=== PATIENT | female | born 1960 | race Caucasian/White ===

== ENCOUNTER 2016-09-08 16:49 | Observation (INO) ==
--- NOTE | 2016-09-08 17:10 | Emergency Department Note ---
Disposition Clinical Impression: Acute exacerbation of chronic obstructive airways disease Disposition: Admitted As Inpatient Condition: Fair Referrals: Anderson Fowler MD [Primary Care Provider] - Forms: ED Satisfaction Letter Time of Disposition: 19:22 (zenon choiv) SOB HPI - General Chief Complaint: ED Shortness of Breath/Dyspnea Stated Complaint: "can't breath", pain to right rib area Time Seen by Provider: 09/08/16 17:00 Source: patient Mode of arrival: ambulatory Limitations: no limitations Nursing Notes Reviewed: Yes Vital Signs Reviewed: Yes - History of Present Illness Sudden onset of right lower rib pain worse with respiration worse with movement has COPD states that she has had a few chills unable to catch her breath states pain is sharp stabbing type pain denies abdominal pain. Denies any loss of bowel or bladder control denies any diarrhea melena meet hematochezia hematemesis patient states the descending pain no tenderness and unable to catch her breath states that she is to give any breath she denies any additional complaints Pt Subjective Complaint: shortness of breath, cough, pain with inspiration Onset (ago): hour(s) (1) Context: recent illness Severity: severe Consistency/Duration: constant Improves with: nothing Worsens with: movement Known history of: COPD, asthma Associated symptoms: Reports: chest pain, pain with inspiration, cough, wheezing , sputum production. Denies: fever, orthopnea, polyuria, polydipsia, parasthesias, palpitations, hemoptysis, diaphoresis, nausea/vomiting, syncope, rash, sense of impending doom Treatment prior to arrival: none Cough present: Yes Cough Description: Involuntary, Non-Productive, Weak Sputum production: Yes Sputum Amount: Small Sputum Color: Yellow - Related Data Home Medications Medication Instructions Recorded Confirmed FLUoxetine HCl [Prozac] 20 mg PO DAILY 07/20/16 09/08/16 Albuterol Sulfate [Proair Hfa] 1 puff IH DAILY 09/08/16 09/08/16 Benzonatate [Tessalon] 200 mg PO Q8H PRN 09/08/16 09/08/16 LORazepam [Ativan] 1 mg PO TID PRN 09/08/16 09/08/16 Levofloxacin [Levaquin] 500 mg PO DAILY 09/08/16 09/08/16 Montelukast [Singulair] 10 mg PO DAILY 09/08/16 09/08/16 Ropinirole [Requip] 3 mg PO HS 09/08/16 09/08/16 Previous Rx's Medication Instructions Recorded Acyclovir [Zovirax] 400 mg PO TID #30 tablet 09/02/16 Promethazine/Phenyleph/Codeine 5 ml PO HS PRN #60 ml 09/02/16 [Promethazine Vc-Codeine Syrup] Allergies Allergy/AdvReac Type Severity Reaction Status Date / Time hydroxyzine [From Vistaril] Allergy Hives Verified 09/08/16 16:50 nalbuphine [From Nubain] Allergy Hives Verified 09/08/16 16:50 morphine AdvReac Rash Verified 09/08/16 16:50 All systems ED: reviewed and negative except as stated. Constitutional: Denies: fever, chills, weakness Eyes: Denies: vision change ENT ED: Reports: congestion. Denies: ear pain, throat pain, dental pain Cardiovascular: Reports: chest pain. Denies: palpitations, dyspnea on exertion Respiratory: Reports: cough, dyspnea, wheezes, sputum production Gastrointestinal: Denies: abdominal pain, nausea, vomiting Genitourinary: Denies: urgency, dysuria, frequency Musculoskeletal: Denies: back pain, neck pain, joint swelling Integumentary: Denies: abrasion, lesions Neurological: Denies: headache, weakness Psychiatric: Denies: anxiety Endocrine: Denies: fatigue Hematological/Lymphatic: Denies: easy bleeding Allergic/Immunologic: Denies: facial swelling Past Medical History - Past Medical History Attestation: Yes The following information was validated with the patient. 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 - Social History Smoking Status: Current every day smoker Smokeless Tobacco Status: No Alcohol use: Reports: none Drug use: Reports: none Physical Exam - General Limitations: no limitations General appearance: alert, in no apparent distress, anxious - Head Head exam: atraumatic, normocephalic, normal inspection - Eye Eye exam: Present: normal appearance, PERRL, EOMI - ENT ENT exam: normal exam, normal oropharynx, mucous membranes moist, TM's normal bilaterally, normal external ear exam - Neck Neck exam: Present: normal inspection, full ROM, trachea midline - Chest Chest inspection: Present: normal inspection, symmetric chest wall rise, tenderness - Respiratory Respiratory exam: Present: wheezes, prolonged expiratory phase - Cardiovascular Cardiovascular exam: Present: regular rate, normal rhythm, normal heart sounds - Abdominal Exam Abdominal exam: Present: soft, Non-Tender, normal bowel sounds. Absent: mass, pulsatile mass - Extremities Exam Extremities exam: Present: normal inspection, full ROM, normal capillary refill. Absent: tenderness, joint swelling - Expanded Lower Extremity Exam Gait: observed and normal - Back Exam Back exam: Present: normal inspection, full ROM. Absent: muscle spasm - Neurological Exam Neurological exam: Present: alert, oriented X3, CN II-XII intact - Psychiatric Psychiatric exam: Present: normal affect, normal mood, anxious - Skin Skin exam: Present: warm, dry, intact, normal color Course Course Narrative: Patient seen and examined the study was done patient was then admitted for observation overnight for exacerbation of her COPD causing lung pain Vital Signs Temperature 98.8 F 09/08/16 16:53 Pulse Rate 83 09/08/16 16:53 Respiratory Rate 24 09/08/16 16:53 Blood Pressure 157/95 09/08/16 16:53 O2 Sat by Pulse Oximetry 100 09/08/16 16:53 Temperature 98.8 F 09/08/16 16:56 Pulse Rate 77 09/08/16 18:50 Respiratory Rate 24 09/08/16 18:50 Blood Pressure 143/81 09/08/16 18:50 O2 Sat by Pulse Oximetry 99 09/08/16 18:50 Oxygen Delivery Oxygen Delivery Room Air Shortness of Breath/Dyspnea - Differential Diagnosis Likely: acute exacerbation of chronic obstructive airways disease - Medical Records Medical records reviewed: Yes I reviewed the patient's medical records. - Lab Data Lab results reviewed: Yes I reviewed the patient's lab results. Result diagrams: 09/08/16 17:12 09/08/16 17:12 Lab Results 09/08/16 09/08/16 09/08/16 Range/Units 17:12 17:12 17:12 WBC 9.0 (4.3-11.1) K/mcL RBC 4.75 (3.82-4.97) M/mcL Hgb 14.9 (11.5-15.4) g/dL Hct 43.8 (35.3-44.9) % MCV 92.2 (83.0-100.0) fL MCH 31.4 (28.0-33.3) pg MCHC 34.0 (31.6-35.5) g/dL RDW 12.4 (11.5-14.5) % Plt Count 296 (140-400) K/mcL MPV 10.7 (9.4-12.4) fL Immature Gran % 0.2 (0-4) % Seg Neutrophils % 64.9 % Lymphocytes % 24.1 % Monocytes % 7.9 % Eosinophils % 1.9 % Basophils % 1.0 % Neutrophils # 5.8 (1.6-8.9) K/mcL Lymphocytes # 2.2 (0.6-4.6) K/mcL Monocytes # 0.7 (0.0-1.3) K/mcL Eosinophils # 0.2 (0.0-0.6) K/mcL Basophils # 0.1 (0.0-0.2) K/mcL PT (9.4-12.1) Seconds INR APTT 30.2 (26.0-36.0) Seconds D-Dimer 613 H (0-500) ng/mLFEU Sodium 139 (136-145) mEq/L Potassium 4.1 (3.5-4.5) mEq/L Chloride 105 (98-109) mEq/L Carbon Dioxide 24 (19-29) mEq/L BUN 16 (7-20) mg/dL Creatinine 0.98 (0.57-1.11) mg/dL Est GFR ( Amer) > 60 (> 60) Est GFR (Non-Af Amer) 58 L (> 60) BUN/Creatinine Ratio 16 (6-26) Glucose 86 (70-99) mg/dL Calculated Osmolality 288 (280-300) Calcium 10.1 (8.6-10.8) mg/dL 09/08/16 Range/Units 17:12 WBC (4.3-11.1) K/mcL RBC (3.82-4.97) M/mcL Hgb (11.5-15.4) g/dL Hct (35.3-44.9) % MCV (83.0-100.0) fL MCH (28.0-33.3) pg MCHC (31.6-35.5) g/dL RDW (11.5-14.5) % Plt Count (140-400) K/mcL MPV (9.4-12.4) fL Immature Gran % (0-4) % Seg Neutrophils % % Lymphocytes % % Monocytes % % Eosinophils % % Basophils % % Neutrophils # (1.6-8.9) K/mcL Lymphocytes # (0.6-4.6) K/mcL Monocytes # (0.0-1.3) K/mcL Eosinophils # (0.0-0.6) K/mcL Basophils # (0.0-0.2) K/mcL PT 12.1 (9.4-12.1) Seconds INR 1.1 APTT (26.0-36.0) Seconds D-Dimer (0-500) ng/mLFEU Sodium (136-145) mEq/L Potassium (3.5-4.5) mEq/L Chloride (98-109) mEq/L Carbon Dioxide (19-29) mEq/L BUN (7-20) mg/dL Creatinine (0.57-1.11) mg/dL Est GFR ( Amer) (> 60) Est GFR (Non-Af Amer) (> 60) BUN/Creatinine Ratio (6-26) Glucose (70-99) mg/dL Calculated Osmolality (280-300) Calcium (8.6-10.8) mg/dL - Radiology Data Radiology results reviewed: Yes I reviewed the patient's radiology results. ITS Impressions Chest X-Ray 09/08/16 17:01 IMPRESSION: No acute cardiopulmonary disease. D/ / 09/08/2016 18:27:56 Fahad Calderon MD / tania Interpreting Provider: Fahad Calderon MD Chest CTA 09/08/16 17:44 IMPRESSION: No evidence of pulmonary embolism or acute pulmonary abnormality. D/ / Ron Mao MD / Ron Mao MD Interpreting Provider: Ron Mao MD - EKG Data EKG attestation: Yes I reviewed and interpreted this EKG. EKG results narrative: Sinus rhythm rate 84 UT 134 QRS 90 QT 361 axis [id number] Critical Care Time Critical Care Time: No
[2016-09-08 17:22] LABS: Basophils # 0.1 K/mcL (0.0-0.2); Eosinophils # 0.2 K/mcL (0.0-0.6); Eosinophils % 1.9 %; Hematocrit 43.8 % (35.3-44.9); Hemoglobin 14.9 g/dL (11.5-15.4); Immature Granulocytes % 0.2 % (0-4); Lymphocytes # 2.2 K/mcL (0.6-4.6); Lymphocytes % 24.1 %; Mean Corpuscular Hemoglobin 31.4 pg (28.0-33.3); Mean Corpuscular Volume 92.2 fL (83.0-100.0); Mean Platelet Volume 10.7 fL (9.4-12.4); Monocytes # 0.7 K/mcL (0.0-1.3); Monocytes % 7.9 %; Neutrophils # 5.8 K/mcL (1.6-8.9); Platelet Count 296 K/mcL (140-400); Red Blood Count 4.75 M/mcL (3.82-4.97); Red Cell Distribution Width 12.4 % (11.5-14.5); Segmented Neutrophils % 64.9 %
[2016-09-08 17:29] LABS: INR 1.1; Prothrombin Time 12.1 Seconds (9.4-12.1)
[2016-09-08 17:33] LABS: Activated Partial Thrombo Time 30.2 Seconds (26.0-36.0)
[2016-09-08 17:37] LABS: BUN/Creatinine Ratio 16 (6-26); Blood Urea Nitrogen 16 mg/dL (7-20); Calcium 10.1 mg/dL (8.6-10.8); Carbon Dioxide 24 mEq/L (19-29); Chloride 105 mEq/L (98-109); Glucose 86 mg/dL (70-99); Osmolality,Calculated 288 (280-300); Potassium 4.1 mEq/L (3.5-4.5); Sodium 139 mEq/L (136-145); eGFR For African Americans > 60 (> 60); eGFR For Non-African Americans 58 (> 60)
[2016-09-08] MEDS ORDERED: Ketorolac 30 MG/ML VIAL IV ONE (19:10)
[2016-09-08] MEDS ORDERED: Azithromycin 500 MG in D5% in Water 250 ML IVPB ONE (19:10)
[2016-09-08] MEDS ORDERED: CefTRIAXone 1,000 MG in D5% in Water (Mini-Bag+) 100 ML IVPB ONE (19:10)
[2016-09-08] MEDS ORDERED: *HR* Promethazine 25 MG/ML VIAL IVP ONE (19:10)
[2016-09-08] MEDS ORDERED: 0.9 % Sodium Chloride 1,000 ML IVC SCH (19:15)
[2016-09-08] MEDS ORDERED: Promethazine/Codeine Oral Sryup 5 ML UDC PO PRN (21:26)
[2016-09-08] MEDS ORDERED: Naloxone 0.4 MG/ML INJ IVP PRN (21:26)
[2016-09-08] MEDS ORDERED: Ketorolac 30 MG/ML VIAL IVP PRN (21:26)
[2016-09-08] MEDS: Acyclovir 200 MG CAPSULE PO SCH (22:29)
[2016-09-08] MEDS: *HR* LORazepam 1 MG TABLET PO PRN (22:32)
[2016-09-08] MEDS: Ipratropium/Albuterol Neb 3 ML IH SCH (23:27)
[2016-09-09] MEDS: *HR* OxyCODONE Immed Rel 5 MG TABLET PO PRN ×3 (02:18→17:29)
[2016-09-09] MEDS: Ipratropium/Albuterol Neb 3 ML IH SCH ×3 (05:07→17:28)
[2016-09-09] MEDS: Ondansetron 4 MG/2 ML VIAL IVP PRN (05:13)
[2016-09-09] MEDS: 0.9 % Sodium Chloride 1,000 ML IVC SCH ×2 (05:13→13:49)
[2016-09-09 06:30] LABS: Basophils % 0.4 %; Hematocrit 41.6 % (35.3-44.9); Hemoglobin 14.1 g/dL (11.5-15.4); Immature Granulocytes % 0.4 % (0-4); Lymphocytes # 0.8 K/mcL (0.6-4.6); Lymphocytes % 10.8 %; Mean Corpuscular HGB Conc 33.9 g/dL (31.6-35.5); Mean Corpuscular Hemoglobin 31.6 pg (28.0-33.3); Mean Corpuscular Volume 93.3 fL (83.0-100.0); Mean Platelet Volume 10.9 fL (9.4-12.4); Monocytes % 0.4 %; Neutrophils # 6.4 K/mcL (1.6-8.9); Platelet Count 277 K/mcL (140-400); Red Blood Count 4.46 M/mcL (3.82-4.97); Red Cell Distribution Width 12.3 % (11.5-14.5)
[2016-09-09 06:32] LABS: INR 1.2; Prothrombin Time 12.5 Seconds (9.4-12.1)
[2016-09-09 06:35] LABS: Activated Partial Thrombo Time 31.3 Seconds (26.0-36.0)
[2016-09-09 06:45] LABS: Alanine Aminotransferase 17 Units/L (0-55); Albumin 3.3 g/dL (3.5-5.0); Albumin/Globulin Ratio 0.8 (1.1-2.2); Alkaline Phosphatase 68 Units/L (38-126); Aspartate Amino Transferase 13 Units/L (5-34); BUN/Creatinine Ratio 18 (6-26); Bilirubin,Total 0.3 mg/dL (0.2-1.2); Blood Urea Nitrogen 18 mg/dL (7-20); Calcium 9.2 mg/dL (8.6-10.8); Carbon Dioxide 20 mEq/L (19-29); Chloride 109 mEq/L (98-109); Globulin 3.9 g/dL (2.4-3.5); Glucose 194 mg/dL (70-99); Osmolality,Calculated 301 (280-300); Potassium 3.5 mEq/L (3.5-4.5); Sodium 142 mEq/L (136-145); Total Protein 7.2 g/dL (6.0-8.3); eGFR For African Americans > 60 (> 60); eGFR For Non-African Americans 56 (> 60)
[2016-09-09] MEDS: Acyclovir 200 MG CAPSULE PO SCH ×3 (10:17→21:24)
[2016-09-09] MEDS: FLUoxetine 20 MG CAPSULE PO SCH (10:17)
[2016-09-09] MEDS: *HR* LORazepam 1 MG TABLET PO PRN ×2 (10:23→21:23)
--- NOTE | 2016-09-09 12:00 | Electrocardiograph Report ---
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
[2016-09-09] MEDS: Albuterol 2.5 MG/3 ML NEBULIZER IH PRN (15:42)
--- NOTE | 2016-09-09 17:33 | Internal Med History&Physical ---
Date of Encounter: 09/09/16 Time of Encounter: 16:55 Assessment and Plan (1) Chest pain Current visit: Yes Status: Acute Suspect pleurisy. She has been started on Solu-Medrol. I will avoid NSAID drugs with impaired renal function Qualifiers: Chest pain type: chest pain on breathing Qualified Code(s): R07.1 - Chest pain on breathing (2) Azotemia Current visit: Yes Status: Acute Review of archived labs show progressive decline in GFR and rising creatinine for 18 months. I discussed with her the evidence of possible chronic kidney disease. Will give IV fluids and recheck labs in a.m. (3) Elevated d-dimer Current visit: Yes Status: Acute Chest CTA was unremarkable. I told her that a small PE might not be seen due to resolution limits of CTA. She understands and agrees to proceed with present management. Internal Medicine - H&P: HPI Chief complaint: Chest pain and dyspnea Admitted From: Home Plans for Post Hospital Care: Home History of present illness: Ms. Sol is a 56 year old female who came to emergency complaining of sharp discomfort in her right anterolateral lower chest area onset approximately 11 AM today. She had worsening of the pain on cough or deep inspiration. She came to emergency room and was evaluated. Elevated d-dimer was documented but chest CTA showed no evidence of pulmonary embolism. She was admitted to [facility] floor for ongoing care needs. She states the dyspnea and pain have improved but are still present. She denies previous similar episodes. She reports having a cough onset approximately 3 weeks. It was initially productive of yellow phlegm but gradually became nonproductive. Respiratory history otherwise is significant for having smoked since age 16 up to one half packs per day. She had spirometry testing 08/28/2016 which showed mild restrictive disease with improvement postbronchodilator. There was evidence of air trapping with decreased diffusion capacity seen. She was prescribed Pro-air inhaler and Singulair. She reports she has not taken any Singulair pills yet and has used Pro Air inhaler only 3 times. She does not have home oxygen. Past Med Surg Social Fam HX - Past Medical History Medical history: asthma, COPD Psychiatric history: anxiety, depression, panic disorder - Past Surgical History Surgical History: appendectomy, , hysterectomy, orthopedic, other, other - Social History Smoking Status: Current every day smoker Packs per day: 3/4 Smokeless Tobacco Status: No Alcohol use: none Drug use: none - Family History Mother History Unknown: Yes Living Status: Father Living Status: Age at : 86 Cause of : empysema Hx Family Respiratory Disorders: Yes (Emphysema) Hx Family Neurologic Disorders: Yes (Dementia, alzheimers) Internal Medicine - H&P: Meds FLUoxetine HCl [Prozac] 20 mg PO DAILY 07/20/16 [History] Acyclovir [Zovirax] 400 mg PO TID #30 tablet 09/02/16 [Rx] Promethazine/Phenyleph/Codeine [Promethazine Vc-Codeine Syrup] 5 ml PO HS PRN # 60 ml 09/02/16 [Rx] Albuterol Sulfate [Proair Hfa] 1 puff IH DAILY 09/08/16 [History] Benzonatate [Tessalon] 200 mg PO Q8H PRN 09/08/16 [History] LORazepam [Ativan] 1 mg PO TID PRN 09/08/16 [History] Levofloxacin [Levaquin] 500 mg PO DAILY 09/08/16 [History] Montelukast [Singulair] 10 mg PO DAILY 09/08/16 [History] Ropinirole [Requip] 3 mg PO HS 09/08/16 [History] Allergies hydroxyzine [From Vistaril] Allergy (Verified 09/08/16 16:50) Hives nalbuphine [From Nubain] Allergy (Verified 09/08/16 16:50) Hives morphine Adverse Reaction (Verified 09/08/16 16:50) Rash All Systems PM: A 10-system review of systems was performed and is negative for pertinent findings except as documented above in the HPI. Review of systems: Gen.: She states her weight has been stable past few months Cardiovascular: She denies NH hypertension heart failure angina DVT or pulmonary embolus Respiratory: As per history of present illness GI: She denies disorders of her liver gallbladder or exocrine pancreas : She has been diagnosed with overactive bladder. She has seen Dr. Rogers at [facility] urology. She reports having mesh surgery performed and numerous medications tried for the OAB. She denies other kidney or bladder disorders. Neurologic: She denies large distribution strokes or seizures. Endocrine: She denies diabetes or thyroid disease or hyperlipidemia Hematology/oncology: She denies blood disorders cancers or anemia Psychiatric: She has anxiety and depression but denies other mental health issues Musk skeletal: She has had 3 back surgeries and recently had a pain stimulator placed. She has restless leg syndrome particularly involving the right leg. She denies gout, osteoporosis, or other bone joint or muscle disorders. - Constitutional Vitals: Temp Pulse Resp BP Pulse Ox 98.6 F 78 18 148/82 91 L 09/09/16 14:20 09/09/16 14:20 09/09/16 15:44 09/09/16 14:20 09/09/16 15:44 Exam: Gen.: She is a well-developed well-nourished female who appears in no severe distress at present time HEENT: Head is atraumatic and normocephalic. Eyes: EOMI. There is no scleral icterus. Mouth: Mucosa is moist. Neck: Supple and nontender. There is no thyromegaly or adenopathy noted. Heart: Regular without murmurs gallops or ectopics. Lungs: No wheezes or crackles are heard. There are no pleural friction rubs over the area of pain. Abdomen: Soft and nontender. No masses or guarding are noted. Extremities: There is no cyanosis edema or clubbing noted. Dorsalis pedis and posterior tibial pulses are 1-2 over 2 bilaterally. Neurologic: Mental status: She is talkative and a good historian. Cranial nerves: Smile is symmetric. Forehead wrinkles bilaterally. Tongue protrudes midline. EOMI. Motor: There is no pronator drift. Cerebellar: Finger to nose is intact bilaterally. Skin: Warm and dry Internal Med - H&P Results - Labs CBC & Chem 7: 09/09/16 05:48 09/09/16 05:48 Labs: Short CBC 09/09/16 Range/Units 05:48 WBC 7.2 (4.3-11.1) K/mcL Hgb 14.1 (11.5-15.4) g/dL Hct 41.6 (35.3-44.9) % Plt Count 277 (140-400) K/mcL Neutrophils # 6.4 (1.6-8.9) K/mcL BMP 09/09/16 05:48 Sodium 142 Potassium 3.5 Chloride 109 Carbon Dioxide 20 BUN 18 Creatinine 1.02 Glucose 194 H Calcium 9.2 Liver Function 09/09/16 Range/Units 05:48 Total Bilirubin 0.3 (0.2-1.2) mg/dL AST 13 (5-34) Units/L ALT 17 (0-55) Units/L Alkaline Phosphatase 68 (38-126) Units/L Albumin 3.3 L (3.5-5.0) g/dL
[2016-09-09] MEDS ORDERED: 0.45 % Sodium Chloride w/KCl 20 MEQ/1,000 ML MLS IVC SCH (18:00)
[2016-09-09] MEDS ORDERED: CefTRIAXone 1,000 MG in D5% in Water (Mini-Bag+) 100 ML IVPB SCH (19:00)
[2016-09-09] MEDS ORDERED: Azithromycin 500 MG in D5% in Water 250 ML IVPB SCH (20:00)
[2016-09-10 00:24] VITALS: BP 113/68
[2016-09-10] MEDS: *HR* OxyCODONE Immed Rel 5 MG TABLET PO PRN (05:53)
[2016-09-10] MEDS: Albuterol 2.5 MG/3 ML NEBULIZER IH PRN ×2 (05:56→11:41)
[2016-09-10] MEDS: Acyclovir 200 MG CAPSULE PO SCH (08:46)
[2016-09-10] MEDS: FLUoxetine 20 MG CAPSULE PO SCH (08:47)
[2016-09-10] MEDS: Ondansetron 4 MG/2 ML VIAL IVP PRN (08:47)
[2016-09-10] MEDS: *HR* LORazepam 1 MG TABLET PO PRN (08:47)
--- NOTE | 2016-09-10 11:06 | Discharge Summary ---
Date of Encounter: 09/10/16 Time of Encounter: 10:50 - Discharge Diagnosis (1) Chest pain Priority: Primary Status: Acute Qualifiers: Chest pain type: chest pain on breathing Qualified Code(s): R07.1 - Chest pain on breathing (2) Azotemia Priority: Secondary Status: Acute (3) Elevated d-dimer Priority: Secondary Status: Acute - Discharge Medications Prescriptions: PredniSONE 20 mg PO BIDWM #6 tablet Home Medications: FLUoxetine HCl [Prozac] 20 mg PO DAILY 07/20/16 [History] Acyclovir [Zovirax] 400 mg PO TID #30 tablet 09/02/16 [Rx] Promethazine/Phenyleph/Codeine [Promethazine Vc-Codeine Syrup] 5 ml PO HS PRN # 60 ml 09/02/16 [Rx] Albuterol Sulfate [Proair Hfa] 1 puff IH DAILY 09/08/16 [History] Benzonatate [Tessalon] 200 mg PO Q8H PRN 09/08/16 [History] LORazepam [Ativan] 1 mg PO TID PRN 09/08/16 [History] Levofloxacin [Levaquin] 500 mg PO DAILY 09/08/16 [History] Montelukast [Singulair] 10 mg PO DAILY 09/08/16 [History] Ropinirole [Requip] 3 mg PO HS 09/08/16 [History] PredniSONE 20 mg PO BIDWM #6 tablet 09/10/16 [Rx] Allergies/Adverse Reactions: Allergies hydroxyzine [From Vistaril] Allergy (Verified 09/08/16 16:50) Hives nalbuphine [From Nubain] Allergy (Verified 09/08/16 16:50) Hives morphine Adverse Reaction (Verified 09/08/16 16:50) Rash Procedures/tests Complete & Pending: Procedures Performed prior 72 hours Category Date Time Status ECG 12 lead ECG [ECG] Routine Y 09/08/16 16:55 Completed Date of admission: 09/08/16 20:05 Primary care physician: Anderson Fowler MD - Patient Status Disposition: Home, Self-Care Condition: Fair Overall status at discharge: patient is progressing back to baseline - Discharge Instructions Follow Up With: Anderson Fowler MD [Primary Care Provider] - 1 week - Diet and Activity Activity: resume usual activities as tolerated Diet: advance to your usual diet Hospital course: Ms. Sol is a 56 year old female who came to emergency complaining of sharp discomfort in her right anterolateral lower chest area onset approximately 11 AM today. She had worsening of the pain on cough or deep inspiration. She came to emergency room and was evaluated. Elevated d-dimer was documented but chest CTA showed no evidence of pulmonary embolism. She was admitted to [facility] for ongoing care needs. Initial orders were written by the emergency room physician. I saw her on September 09 and performed the history and physical. She was started on Rocephin and Zithromax with Solu-Medrol through the emergency room. There was significant improvement in her chest pain with treatment. I felt the pain was likely pleuritic in origin. I do not feel she has significant infection and will not continue antibiotics after discharge. She will continue with prednisone for 3 additional days. When I saw her on September 10 she felt improved and stable for discharge home which I felt was reasonable. Room air oximetry will be checked prior to discharge. I encouraged her to discontinue smoking. She will follow with Dr. Fowler within 1 week. He can order follow-up labs to further monitor her azotemia. - Time Spent with Patient Total time spent providing and/or coordinating discharge services: - Constitutional Vitals: Temp Pulse Resp BP Pulse Ox 98.6 F 83 18 113/68 94 L 09/10/16 00:23 09/10/16 00:23 09/10/16 00:23 09/10/16 00:23 09/10/16 09:02
== END 2016-09-10 13:00 | disposition home or self-care (01) ==
LOC: EMEROOPIK 16:49 → INPPIK 16:49
PROVIDERS: ADMIT Internal Medicine; ATTEND Internal Medicine